=== PATIENT | female | born 1960 | race Two or more races ===

== ENCOUNTER 2023-12-08 00:39 | Emergency (ER) | payer BC, OTHER ==
[~2023-12-08] VITALS: Ht 160 cm; Wt 63.0 kg
[2023-12-08 01:02] LABS: Hematocrit 35.2 % (36.0-46.0); Hemoglobin 11.5 g/dL (12.2-16.2); Mean Corpuscular Hemoglobin 28.8 pg (28.0-32.0); Mean Corpuscular Hgb Conc. 32.8 g/dL (32.0-36.0); Mean Corpuscular Volume 87.9 fL (80.0-100.0); Red Cell Distribution Width 15.4 % (11.8-14.3); White Blood Cell 13.6 10^3/uL (4.4-10.8)
[2023-12-08 01:06] LABS: Basophils % (manual) 0 (0.0-2.0); Blast Cells 0; Metamyelocytes % 0; Myelocytes % 0; Promyelocytes % 0
[2023-12-08 01:22] LABS: Alanine Aminotransferase 19 U/L (7-40); Albumin 4.3 g/dL (3.2-4.8); Alkaline Phosphatase 102 U/L (46-116); Anion Gap 5 (5-15); Aspartate Aminotransferase 10 U/L (13-40); Bilirubin, Total 0.6 mg/dL (0.2-1.0); Blood Urea Nitrogen 20 mg/dL (9-23); Calcium 9.8 mg/dL (8.7-10.4); Carbon Dioxide 29 mmol/L (20-30); Chloride 106 mmol/L (98-107); Glucose 116 mg/dL (74-106); Potassium 4.2 mmol/L (3.5-5.1); Sodium 140 mmol/L (136-145); Total Protein 6.9 g/dL (5.7-8.2)
[2023-12-08 02:02] LABS: Band Neutrophils % (manual) 1; Eosinophils % (manual) 2 (0-7); Lymphocytes % (manual) 59 (10.0-50.0); Monocytes % (manual) 2 (0-12); Platelet Estimate Adequate; Reactive Lymphocytes 6
[2023-12-08] MEDS ORDERED: ALBU108A5 IN (04:31)
[2023-12-08] MEDS ORDERED: IBUP1TAB5 PO (04:31)
[2023-12-08 05:49] VITALS: BP 134/56; PULSE 60; RESP 18; TEMP 99.8; O2SAT 98
== END 2023-12-08 05:53 | disposition home or self-care (01) ==
LOC: ER 00:39
DX: J40 Bronchitis, not specified as acute or chronic (principal); R07.81 Pleurodynia; I10 Essential (primary) hypertension; E11.9 Type 2 diabetes mellitus without complications; E78.5 Hyperlipidemia, unspecified
CPT/HCPCS: 36415; 71045; 80053; 83880; 84484; 85007; 85027; 93005